=== PATIENT | female | born 1995 | race Native Hawaiian/Other Pacific Islander ===

== ENCOUNTER 2020-04-22 11:16 | Outpatient (REF) | payer OTHER, SELFPAY | END 2020-04-22 11:17 | disposition home or self-care (01) | LOC: HO.LAB 11:16 | PROVIDERS: Visit Provider Internal Medicine | DX: Z20.828 Contact with and (suspected) exposure to other viral communicable diseases (principal) | CPT/HCPCS: C9803; U0003 ==

== ENCOUNTER 2020-06-13 09:23 | Outpatient (REF) | payer OTHER, SELFPAY | END 2020-06-13 09:24 | disposition home or self-care (01) | LOC: HO.LAB 09:23 | PROVIDERS: Visit Provider Internal Medicine | DX: Z20.828 Contact with and (suspected) exposure to other viral communicable diseases (principal) | CPT/HCPCS: C9803; U0003 ==

== ENCOUNTER → 2021-06-02 13:25 | Outpatient (BNVA) | payer OTHER, SELFPAY | PROVIDERS: Visit Provider Physician Assistant Medical | DX: S40.011A Contusion of right shoulder, initial encounter (principal); W31.89XA Contact with other specified machinery, initial encounter | CPT/HCPCS: 99203 ==

== ENCOUNTER → 2021-06-24 09:13 | Outpatient (BNVA) | payer OTHER, SELFPAY | PROVIDERS: Visit Provider Physician Assistant Medical | DX: S40.011D Contusion of right shoulder, subsequent encounter (principal); X58.XXXD Exposure to other specified factors, subsequent encounter | CPT/HCPCS: 99213 ==

== ENCOUNTER → 2022-04-16 11:34 | Outpatient (BNVA) | payer OTHER, SELFPAY | PROVIDERS: Visit Provider Physician Assistant Medical | DX: Z13.89 Encounter for screening for other disorder (principal) | CPT/HCPCS: 73564; 99203 ==

== ENCOUNTER 2022-07-15 12:13 | Outpatient (REF) | payer OTHER, SELFPAY ==
--- NOTE | ~2022-07-15 | XR_ITS ---
EXAMINATION: XR ANKLE, RIGHT CLINICAL INFORMATION: Sprain injury. COMPARISON: None TECHNIQUE: AP, lateral, and mortise views of the right ankle. FINDINGS: Bone alignment and mineralization are normal. The ankle mortise is intact. No fracture, dislocation or right ankle joint effusion is seen. Boehler's angle is normal. There is no calcaneal spur. There is mild generalized soft tissue swelling. XR/XR ankle RT min 3V IMPRESSION: 1. No fracture, dislocation or right ankle joint effusion is seen. 2. There is mild generalized soft tissue swelling.
== END 2022-07-15 12:14 | disposition home or self-care (01) ==
LOC: HO.HMGCX 12:13
PROVIDERS: Visit Provider Internal Medicine
DX: S93.401A Sprain of unspecified ligament of right ankle, initial encounter (principal)
CPT/HCPCS: 73610

== ENCOUNTER 2022-11-03 09:50 | Outpatient (REF) | payer OTHER, SELFPAY ==
--- NOTE | ~2022-11-03 | XR_ITS ---
EXAMINATION: XR KNEE, RIGHT XR KNEE AP STANDING CLINICAL INFORMATION: Pain. COMPARISON: Right knee radiographs dated 04/16/2022. TECHNIQUE: Lateral and axial views of the right knee were obtained. AP bilateral standing view of the knees was obtained. FINDINGS: Bones and soft tissues are normal. No fracture or joint effusion. Alignment is anatomic. Joint spaces are well maintained. No abnormal soft tissue calcification. XR/XR knee RT 2V IMPRESSION: Normal right knee radiographs and AP view of the bilateral knees.
--- NOTE | ~2022-11-03 | XR_ITS ---
EXAMINATION: XR KNEE, RIGHT XR KNEE AP STANDING CLINICAL INFORMATION: Pain. COMPARISON: Right knee radiographs dated 04/16/2022. TECHNIQUE: Lateral and axial views of the right knee were obtained. AP bilateral standing view of the knees was obtained. FINDINGS: Bones and soft tissues are normal. No fracture or joint effusion. Alignment is anatomic. Joint spaces are well maintained. No abnormal soft tissue calcification. XR/XR knee standing BI IMPRESSION: Normal right knee radiographs and AP view of the bilateral knees.
== END 2022-11-03 09:51 | disposition home or self-care (01) ==
LOC: HO.HOSX 09:50
PROVIDERS: Visit Provider Physician Assistant
DX: M25.561 Pain in right knee (principal); S93.401D Sprain of unspecified ligament of right ankle, subsequent encounter; X58.XXXD Exposure to other specified factors, subsequent encounter
CPT/HCPCS: 73560; 73565

== ENCOUNTER 2022-12-02 13:40 | Emergency (ER) | payer OTHER, SELFPAY ==
[2022-12-02 14:08] VITALS: BP 143/85; PULSE 81; RESP 16; TEMP 36.8; O2SAT 100; BMI 51.5
--- NOTE | 2022-12-02 14:08 | ED.ABDPAIN ---
HPI - Abdominal Pain General Chief Complaint: Abdominal Pain Stated Complaint: Stomach Pain Nausea Related Data Home Medications Medication Instructions Recorded Confirmed amlodipine 5 mg tablet 5 mg PO DAILY 07/15/22 cetirizine 10 mg tablet 10 mg PO DAILY 07/15/22 Allergies Allergy/AdvReac Type Severity Reaction Status Date / Time No Known Allergies Allergy Verified 11/03/22 10:57 [facility] Past Medical History Medical History (Updated 12/02/22 @ 20:53 by EB Samano) Hypertension Social History Social History (Updated 11/03/22 @ 10:58 by Rosa Manrique [facility]) Patient Tobacco Use Status: Never used Tobacco Advance Directives: No Advance Directives Information Provided: No Current occupational status: employed Physical Exam ED Vital Signs: Vital Signs - 24 hr 12/02/22 14:08 Temperature 98.2 F Pulse Rate 81 Respiratory Rate 16 Blood Pressure 143/85 H Pulse Oximetry 100 Oxygen Delivery Method Room Air BMI result Body Mass Index 51.5 Course Course Course Narrative: RME: 26yo F w/no sig PMHx c/o constant periumbilical abdominal cramping x2 days w/nausea & decreased PO intake. LMP end of September. denies V/D, dysuria, vaginal bleeding or d/c abdomen soft & nnontender at present Labs, UA preg ordered Full HPI, ROS and PE to be performed by primary ED provider. Medical Decision Making Lab Data 12/02/22 14:24 12/02/22 14:24 Labs: Lab Results 12/02/22 12/02/22 12/02/22 Range/Units 14:24 14:24 14:24 WBC 5.1 (4.8-10.8) X10*3/uL RBC 5.06 (4.20-5.50) X10*6/uL Hgb 14.5 (12.0-16.0) g/dl Hct 42.0 (37.0-47.0) % MCV 83.0 (80.0-98.0) fL MCH 28.7 (27.0-33.0) pg MCHC 34.5 (31.0-35.0) g/dl RDW 12.8 (11.0-16.0) % Plt Count 342 (160-400) X10*3/uL MPV 10.1 (9.4-12.3) fL Immature Gran % (Auto) 0.2 (0.0-0.4) % Neut % (Auto) 46.1 (45-73) % Lymph % (Auto) 40.4 H (20-40) % [facility] % (Auto) 10.1 (2-11) % Eos % (Auto) 2.6 (0-4) % Baso % (Auto) 0.6 (0-2) % Lymph # (Auto) 2.1 (1.2-4.9) X10*3/uL [facility] # (Auto) 0.5 (0.1-1.2) X10*3/uL Eos # (Auto) 0.1 (0.0-0.4) X10*3/uL Baso # (Auto) 0.0 (0.0-0.2) X10*3/uL Abs Immat Gran (auto) 0.01 (0.00-0.03) X10*3/uL Absolute Neuts (auto) 2.3 (2.0-8.3) x10*3/uL Absolute Nucleated RBC 0.000 (0.0-0.012) X10*3/uL Nucleated RBC % (auto) 0.0 (0.0-0.2) /100WBC Sodium 141 (135-145) mmol/L Potassium 3.2 L (3.3-5.1) mmol/L Chloride 104 (96-108) mmol/L Carbon Dioxide 29 (22-29) mmol/L Anion Gap 11 L (12-20) BUN 10 (9-16) mg/dL Creatinine 0.73 (0.5-1.4) mg/dL Estim Creat Clear Calc 155.2 Estimated GFR > 60 Random Glucose 85 (60-115) mg/dL Calcium 9.4 (8.4-10.2) mg/dL Magnesium 2.1 (1.6-2.6) mg/dL Total Bilirubin 0.9 (0.0-1.0) mg/dL Direct Bilirubin 0.3 (0.0-0.5) mg/dL AST 26 (5-31) U/L ALT 35 H (0-31) U/L Alkaline Phosphatase 87 (39-117) U/L Total Protein 8.4 H (6.5-8.0) g/dL Albumin 4.5 (3.5-5.0) g/dL Lipase 112 H (8-78) U/L Beta HCG, Quant < 2 mIU/mL Discharge Plan Discharge Clinical Impression: Abdominal pain Patient Disposition: Elopement Prescriptions: No Action amlodipine 5 mg tablet 5 mg PO DAILY cetirizine 10 mg tablet 10 mg PO DAILY Discharge Date/Time: 12/02/22 17:34
[2022-12-02 14:27] LABS: MANUAL DIFF FLAG NO
[2022-12-02 14:30] LABS: Basophils Percent Auto 0.6 % (0-2); Eosinophils Absolute Auto 0.1 X10*3/uL (0.0-0.4); Eosinophils Percent Auto 2.6 % (0-4); Hemoglobin 14.5 g/dl (12.0-16.0); Imm Gran Abs Auto 0.01 X10*3/uL (0.00-0.03); Imm Gran Pct Auto 0.2 % (0.0-0.4); Lymphocytes Absolute Auto 2.1 X10*3/uL (1.2-4.9); Lymphocytes Percent Auto 40.4 % (20-40); Mean Corpuscular HGB Conc 34.5 g/dl (31.0-35.0); Mean Corpuscular Hemoglobin 28.7 pg (27.0-33.0); Mean Platelet Volume 10.1 fL (9.4-12.3); Monocytes Absolute Auto 0.5 X10*3/uL (0.1-1.2); Monocytes Percent Auto 10.1 % (2-11); Neutrophils Absolute Auto 2.3 x10*3/uL (2.0-8.3); Neutrophils Percent Auto 46.1 % (45-73); Platelet Count 342 X10*3/uL (160-400); Red Blood Count 5.06 X10*6/uL (4.20-5.50); Red Cell Distribution Width 12.8 % (11.0-16.0); White Blood Count 5.1 X10*3/uL (4.8-10.8)
[2022-12-02 14:44] LABS: Alanine Aminotransferase 35 U/L (0-31); Albumin Level 4.5 g/dL (3.5-5.0); Alkaline Phosphatase 87 U/L (39-117); Anion Gap 11 (12-20); Aspartate Amino Transferase 26 U/L (5-31); Bilirubin Direct 0.3 mg/dL (0.0-0.5); Bilirubin Total 0.9 mg/dL (0.0-1.0); Blood Urea Nitrogen 10 mg/dL (9-16); Calcium 9.4 mg/dL (8.4-10.2); Carbon Dioxide 29 mmol/L (22-29); Chloride 104 mmol/L (96-108); Creatinine Clr Calc Pharmacy 155.2; Estimated Glomerular Filt Rate > 60; Glucose Random 85 mg/dL (60-115); Lipase 112 U/L (8-78); Magnesium 2.1 mg/dL (1.6-2.6); Potassium 3.2 mmol/L (3.3-5.1); Sodium 141 mmol/L (135-145); Total Protein 8.4 g/dL (6.5-8.0)
[2022-12-02 15:06] LABS: HCG Quantitative < 2 mIU/mL
== END 2022-12-02 17:34 | disposition left against medical advice (07) ==
LOC: HO.ED 17:26
PROVIDERS: Physician Assistant; Emergency Provider Emergency Medicine
DX: R10.33 Periumbilical pain (principal); I10 Essential (primary) hypertension
CPT/HCPCS: 36415; 80048; 80076; 83690; 83735; 84702; 85025; 99281; 99283

== ENCOUNTER 2024-12-06 08:01 | Outpatient (AMB) | payer OTHER, SELFPAY ==
[2024-12-06 08:09] VITALS: BP 122/88; PULSE 76; TEMP 36.7; O2SAT 97; BMI 50.2
--- NOTE | 2024-12-06 08:09 | AM.OFFWIN_ITS ---
Intake Vital Signs 12/06/24 08:09 Height 5 ft 3 in Weight 283 lb 3 oz BMI 50.2 BP 122/88 Blood Pressure Location Rt brachial Position Sitting Pulse 76 Pulse Source Pulse Oximeter Temp 98.1 F Temp Source Oral Pulse Oximetry (%) 97 Oxygen Delivery Method Room Air Intake Visit Reasons: EP sore throat, chest pressure/pain, congestion Intake Note: Patient present with sore throat times 3 days, Chest pain times 2 days Patient Tobacco Use Status: Never used Tobacco Allergies No Known Allergies Allergy (Verified 12/06/24 08:13) Do you need a note to return to daycare/school/sports/work: Yes HPI HPI Comments History of Present Illness Details History - The patient is a 28-year-old female pr esenting with a sore throat, chest pain, and cough. - Symptoms began with a sore throat on S unday, worsening over the past two days. - The patient reports voice changes and chest pain due to forced speech and deep breathing. - Coughing is severe, with yellow sputum production. 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 - NyQuil has been used for symptom relie f. - She denies fever, chills, CP, SOB, abd pain, n/v/d, sick contacts, [place], or travel. Physical Exam General: Cooperative, healthy appearing, comfortable and no acute distress Orientation/consciousness: Patient oriented x3 Limitations: No limitations Head: Normal to inspection Ears: Hearing grossly normal bilaterally, external ears normal and TM's normal bilaterally Nose: Normal external nose present, normal nares present, and no nasal discharge present. Face and sinus: Sinuses tender to palpation. Mouth: Normal oral and palatal mucosa present and moist mucous membranes noted. Throat: Tonsils normal. Uvula is midline. Posterior oropharynx with erythema and no exudates. Eyes: Appearance normal, both eyes and all related structures Neck: Normal visual inspection, full ROM. No lymphadenopathy noted. Respiratory: Clear to auscultation bilaterally. Normal respiratory effort, unable to speak in complete sentences without difficulty. Respiratory distress noted, not tachypneic, no tripod positioning and no use of accessory muscles. Cardiovascular: Regular rate and rhythm. Normal S1 and S2 Skin: No rashes or lesions noted Patient was informed and verbally consented to the use of an ambient scribe for clinic note documentation during this visit [facility] Medical History (Updated 12/03/22 @ 00:07 by Antonio Aguirre) Hypertension Social History (Updated 11/03/22 @ 10:58 by Rosa Manrique Dmitry) Patient Tobacco Use Status: Never used Tobacco Current occupational status: employed Review of Systems Const All systems reviewed & are unremarkable except as noted in HPI and below Physical Exam Vital Signs: Last Vital Signs Temp 98.1 F 12/06/24 08:09 Pulse 76 12/06/24 08:09 BP 122/88 12/06/24 08:09 Pulse Ox 97 12/06/24 08:09 Oxygen Delivery Method Room Air 12/06/24 08:09 BMI result Body Mass Index 50.2 Results AMB Rapid Strep AMB Rapid Strep Negative Last Edit by Fuad Wilkins CMA on 12/06/24 08 :30 Assessment & Plan Assessment & Plan (1) URI with cough and congestion: Code(s): J06.9 - Acute upper respiratory infection, unspecified Plan Most likely URI vs strep vs allergic rhinitis vs sinusitis Rapid strep in the office is negative Plan - Tylenol or Motrin as needed for pain or fever - Medications will be prescribed to alleviate symptoms and improve comfort. - A work note will be provided for absence due to illness, with a return to work on Wednesday. Orders: Orders AMB Rapid Strep Screen Today Z13.9 - Encounter for screening, unspecified Medications: New cetirizine-pseudoephedrine 5-120 mg ER 1 tab PO BID 14 tabs 0RF 7 days albuterol sulfate 90 mcg/actuation 2 puffs inhalation Q6H PRN 8.5 grams 0RF shortness of breath or wheezing or cough benzonatate 100 mg PO bid-tid PRN 21 caps 0RF Cough 7 days Coding Level of Care Code Est Pt Level 3 (44296) Diagnoses URI with cough and congestion J06.9
--- OUTSIDE RECORDS SUMMARY | 2024-12-06 08:09 | XMS_ITS | Clinical Summary ---
Author Organization [facility] [address] [facility] Address [address] [place] [phone] Phone Care Team Providers Care Real Estate Associate Name Role Phone Nalini Mon DO Primary Care Provider [phone] Allergies Active Allergy Reactions Criticality Noted Date Comments Other 10/12/2023 Seasonal allergies Medications cetirizine (ZyrTEC) 10 mg tablet Take 1 tablet (10 mg total) by mouth 1 (one) time each day. 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 Resolved Problems Problem Noted Date Diagnosed Date Resolved Date Adult BMI 40.0-44.9 kg/sq m (CMS/HCC V24, CMS/HCC V28) 04/11/2024 04/11/2024 Immunizations Name Administration Dates Next Due DTP 05/19/1996,03/07/1996 DTaP (Infanrix) 6wks to less than 7yo 01/13/2000 ,11/29/1997,07/18/1996 AIzT-CYZ-KYR (Pentacel) 2mo to less than 5yo 11/29/1997,07/18/1996,05/19/1996,03/07 HPV, Quadrivalent 09/06/2008,03/20/2008,02/17/20 08 Hepatitis B (Xbruyjw-K-Kgman , Recombivax HB-Adult) 19yo and older 06/24/2018,12/24/2017,11/24/2017 Hepatitis B Pediatric (Enger ix B; Recombivax HB) to less than 20 yo 10/16/1996,03/07/1996,1995 IPV Inactivated polio (Ipol) 6wks and older 01/13/2000 Influenza Quadravalent, MDCK , 0.5ml, preservative free (Flucelvax) 6mo and older 02/22/2023,04/12/2020 Influenza trivalent, 0.5mL, preservative free (Fluarix; FluLaval; Fluzone) ages 6mo and older (Afluria) 3 years and older 03/16/2024 Influenza, live, intranasal, trivalent (FluMist) 2yo to less than 50yo 06/01/2014 MMR, measles mumps and rubel la Live (Priorix; M-M-R II) 12mo and older 01/13/2000,11/29/1997 Meningococcal MCV4P 01/31/2018,02/17/2008 OPV 07/18/1996,05/19/1996,03/07/1996 Pfizer SARS-CoV-2 COVID-19, mRNA, LNP-S, preservative free 12/05/2020,10/23/2020 Tb Skin Test 12/13/2018,12/24/2017 Tdap Tetanus diptheria acell ular pertussis (Boostrix; Adacel) 7yo and older 12/09/2017,02/17/2008 Varicella live (Varivax) 12m o and older 02/21/2009,01/16/1997 Medical History Medical History Date Comments Hyperopia 12/14/2017 DX:Hyperopia Morbid obesity with BMI of 4 5.0-49.9, adult ([facility] V24, [facility] V28) 06/30/2021 DX:Morbid obesity wit h BMI of 45.0-49.9, adult ([facility]) Hypertension DX:Hypertension Family History Medical History Relation Name Comments Other: Diabetes, hypertnesion Father HTN , Kidney disease, Lung disorder age age 31 Asthma Mother Diabetes Paternal Grandmother Hyperte nsion Relation Name Status Comments Father Maternal Grandmother Mother Alive Paternal Grandmother Social History Tobacco Use Types Packs/Day Years Used Date Smoking Tobacco: Never Smokeless Tobacco: Never Tobacco Cessation:Counseling Given: Not Answered Alcohol Use Standard Drinks/Week Comments Yes 3 (1 standard drink = 0.6 oz pur e alcohol) Comments No Sex and Gender Information Value Date Recorded Sex Assigned at Not on file Legal Sex Female 4:56 AM EST Gender Identity Not on file Sexual Orientation Not on file Obstetrics History Last Filed Vital Signs Vital Sign Reading Time Taken Comments Blood Pressure 126/76 05/16/2024 2:02 PM EST Pulse 86 05/16/2024 2:02 PM EST Temperature - - Respiratory Rate - - Oxygen Saturation - - Inhaled Oxygen Concentration - - Weight 131 kg (287 lb 14.4 oz) 05/16/2024 2:02 P M EST Height 160 cm (5' 3 ) 05/16/2024 2:02 PM EST Body Mass Index 51 05/16/2024 2:02 PM EST Plan of Treatment Upcoming Encounters Date Type Department Care Team (Late st Contact Info) Description 12/08/2024 2:45 PM EDT Office Visit Internal Medicine - [address] [phone] Janet Amador NP [address] [place] [id number] Health Maintenance Due Date Last Done Comments Social Influencers of Health Screening 05/21/2022 COVID-19 Vaccine ( season) 2024 04/25/2021, 12/05/2020, 10/23/2020 Cervical Cancer Screening: Pap Smear 07/01/2024 07/01/2021, 07/01/2021, 07/01/2021, Additional history exists Depression Screening 08/26/2024 08/27/2023 Hypertension/CHF/CAD Annual BMP Blood Test 05/16/2025 05/16/2024, 02/22/2023, 12/11/2020, Additional history exists DTaP,Tdap,and Td Vaccines (8 - Td or Tdap) 12/10/2027 12/09/2017, 02/17/2008, 01/13/2000, Additional history exists Cholesterol Screening (Lipid Panel) 05/16/2029 05/16/2024, 02/22/2023 HIB Vaccines Completed 11/29/1997, 09/1996, 05/19/1996, Additional history exists IPV Vaccines Completed 01/13/2000, 11/12, 07/18/1996, Additional history exists MMR Vaccines Completed 01/13/2000, 11/29/1997 HPV Vaccines Completed 09/06/2008, 12/2007, 02/17/2008 Varicella Vaccines Completed 02/21/2009, 01/16/1997 Meningococcal ACWY Vaccine Aged Out 01/31/2018, No longer eligible based on patient's age to complete this topic Hepatitis B Vaccines Completed 06/24/2018, 12/24/2017, 11/24/2017, Additional history exists HIV Screening Completed 11/30/2022 Hepatitis C Screening Completed 11/30/2022 Influenza Vaccine Completed 03/16/2024, , 03/03/2022, Additional history exists Hepatitis A Vaccines Aged Out No long er eligible based on patient's age to complete this topic Meningococcal B Vaccine Aged Out No l onger eligible based on patient's age to complete this topic Pneumococcal Vaccine: Pediatrics (0 to 5 Years) and At-Risk Patients (6 to 64 Years) Aged Out No longer eligible based on patient's age to complete this topic RSV Immunization Patients Under 20 months Aged Out No longer eligible based on patient's age to complete this topic Procedures Procedure Name Priority Date/Time Associated Diagnosis Comments BASIC METABOLIC PANEL Routine 05/16/2024 2:27 PM EST Screening for cholesterol level LIPID PANEL WITH REFLEX TO DIRECT LDL Routine 05/16/2024 2:27 PM EST Screening for cholesterol level HM DEPRESSION SCREENING Routine 08/27/2023 HEPATITIS C SCREENING Routine 11/30/2022 HIV SCREENING Routine 11/30/2022 PAP SMEAR Routine 07/01/2021 from Last 3 Months or Most Recently Relevant to Health Maintenance Results * Lipid panel with reflex to direct LDL (05/16/2024 2:27 PM EST) Cholesterol 163 0 - 200 mg/dL LAB CHEMISTRY METHOD 05/16/2024 6:40 PM EST [facility] Triglycerides 107 0 - 150 mg/dL LAB CHEMISTRY METHOD 05/16/2024 6:40 PM EST [facility] HDL 46 >=40 mg/dL LAB CHEMISTRY METHOD 05/16/2024 6:40 PM EST [facility] LDL Calculated 96 0 - 100 mg/dL LAB CHEMISTRY METHOD 05/16/2024 6:40 PM EST [facility] VLDL Cholesterol Enoc 21.4 mg/dL LAB CHEMISTRY METHOD 05/16/2024 6:40 PM EST [facility] Non HDL Chol. (LDL+VLDL) 117 <145 mg/dL LAB CHEMISTRY METHOD 05/16/2024 6:40 PM EST [facility] Chol/HDL Ratio 3.5 0.0 - 4.4 LAB CHEMISTRY METHOD 05/16/2024 6:40 PM EST [facility] Blood Venous blood specimen / Unknown Venipuncture / Unknown 05/16/2024 2:27 PM EST 05/16/2024 2:27 PM EST us Janet Amador NP LAB BLOOD ORDERABLES Final Resul t [facility] [address] [place] [address], * Basic metabolic panel (05/16/2024 2:27 PM EST) Sodium 139 133 - 145 mmol/L LAB CHEMISTRY METHOD 05/16/2024 6:40 PM [facility] Potassium 3.8 3.5 - 5.5 mmol/L LAB CHEMISTRY METHOD 05/16/2024 6:40 PM [facility] Chloride 103 96 - 110 mmol/L LAB CHEMISTRY METHOD 05/16/2024 6:40 PM [facility] CO2 27 21 - 32 mmol/L LAB CHEMISTRY METHOD 05/16/2024 6:40 PM [facility] Anion Gap 9 3 - 11 LAB CHEMISTRY METHOD 05/16/2024 6:40 PM [facility] Glucose 73 70 - 100 mg/dL LAB CHEMISTRY METHOD 05/16/2024 6:40 PM [facility] BUN 16 5 - 25 mg/dL LAB CHEMISTRY METHOD 05/16/2024 6:40 PM [facility] Creatinine 0.79 0.50 - 1.10 mg/dL LAB CHEMISTRY METHOD 05/16/2024 6:40 PM [facility] eGFR 105 >=60 mL/min/1. 73m2 LAB CHEMISTRY METHOD 05/16/2024 6:40 PM [facility] Comment:Calculation based on the Chronic Kidney Disease Epidemiology Collaboration (CKD-EPI) equation refit without adjustment for race. BUN/Creatinine Ratio 20.3 LAB CHEMISTRY METHOD 05/16/2024 6:40 PM [facility] Calcium 9.5 8.5 - 10.5 mg/dL LAB CHEMISTRY METHOD 05/16/2024 6:40 PM [facility] Blood Venous blood specimen / Unknown Venipuncture / Unknown 05/16/2024 2:27 PM EST 05/16/2024 2:27 PM EST us Janet Amador NP LAB BLOOD ORDERABLES Final Resul t [facility] [address] [place] [address], * Depression Screening (08/27/2023) Depression Screening abstracted Historical Provider MD HEALTH MAINTENANCE Final Result * HIV Screening (11/30/2022) HIV Screening abstracted Historical Provider MD HEALTH MAINTENANCE Final Result * Hepatitis C Screening (11/30/2022) Hepatitis C Screening abstracted Historical Provider MD HEALTH MAINTENANCE Final Result * Pap smear (07/01/2021) 07/01/2021 Narrative HISTORICAL TESTING LAB RESULTING AGENCY - 07/16/2021 7:30 AM EST [id number] THINPREP PAP, IMAGED: NEGATIVE FOR SQUAMOUS INTRAEPITHELIAL LESION AND MALIGNANCY . JEIMY IS PRESENT. NOTE: THE PAP TEST IS A SCREENING TEST WITH AN INHERENT FALSE NEGATIVE RATE. AUTOMATED PRESCREENING OF ALL LIQUID BASED SPECIMENS IS PERFORMED BY THE THINPREP IMAGING SYSTEM UNLESS OTHERWISE STATED. MAVIS COULTER(ASCP) (CASE ELECTRONICALLY SIGNED 07 15 2021) ADEQUACY: SATISFACTORY ENDOCERVICAL/TRANSFORMATION ZONE COMPONENT ABSENT. SOURCE: THINPREP PAP HPV IF ASCUS, CERVICAL, IMAGED CLINICAL INFORMATION: HPV IF DIAGNOSIS OF ASCUS. Z12.4 Lisa NAVARRO LAB CYTOLOGY ORDERABLES Fabiola avila Result HISTORICAL TESTING LAB RESULTING AGENCY from Last 3 Months or Most Recently Relevant to Health Maintenance Insurance [employer] [facility] [place] [phone] Care Teams Real Estate Associate Relationship Specialty Start Date End Date Nalini Mon DO [address] [place] [address] PCP - General 01/22/23
== END 2024-12-06 09:34 | disposition home or self-care (01) ==
PROVIDERS: PCP Nurse Practitioner; Visit Provider Physician Assistant Medical
DX: J06.9 Acute upper respiratory infection, unspecified (principal)

== ENCOUNTER → 2024-12-06 08:01 | Outpatient (BNVA) | payer OTHER, SELFPAY | PROVIDERS: PCP Nurse Practitioner; Visit Provider Physician Assistant Medical | DX: I10 Essential (primary) hypertension (principal); J06.9 Acute upper respiratory infection, unspecified; R07.9 Chest pain, unspecified; R05.9 Cough, unspecified | CPT/HCPCS: 87880 ==